=== PATIENT | male | born 1955 | race Caucasian/White ===

== ENCOUNTER 2024-03-01 06:45 | Day surgery (SDC) | payer MEDICARE, OTHER ==
[~2024-03-01] VITALS: Ht 170.2 cm; Wt 113.5 kg
[~2024-03-01 06:45] MED LIST: ALBU18HF12 IH; ASPI-1444 PO; ATOR20TA PO; DORZ10DR6 OU; EMPA10TA3 PO; FAMO20 PO; GABA-1216 PO; IBUP-1492 PO; LIDOCAINE/PF 2% 5 ML VIAL ONE; LISI-893 PO; MELO-107 PO; METF-1211 PO; PROPOFOL 1% 20 ML VIAL IVP ONE; SODIUM CHLORIDE 0.9% 1,000 ML ONE; TERB250T90 PO; XALA2.5OS OU
[2024-03-01 08:00] LABS: GLUCOMETER DEV NAME(LOC) SDS.; GLUCOSE,POINT OF CARE 115 MG/DL (70-110)
[2024-03-01] MEDS: SODIUM CHLORIDE 0.9% 1,000 ML IV ONE (08:01)
[2024-03-01] MEDS ORDERED: OXYGEN THERAPY IH SCH (08:30)
== END 2024-03-01 10:40 | disposition home or self-care (01) ==
LOC: SURGERY 06:45
PROVIDERS: ATTEND Specialist
DX: K21.9 Gastro-esophageal reflux disease without esophagitis (principal); K44.9 Diaphragmatic hernia without obstruction or gangrene; K29.70 Gastritis, unspecified, without bleeding; K31.A0 Gastric intestinal metaplasia, unspecified; R05.9 Cough, unspecified; E11.9 Type 2 diabetes mellitus without complications; M25.561 Pain in right knee; E78.00 Pure hypercholesterolemia, unspecified; Z79.899 Other long term (current) drug therapy; Z79.84 Long term (current) use of oral hypoglycemic drugs; Z86.16 Personal history of COVID-19
CPT/HCPCS: 82962; 88305; 88312; 88313; J2704; J3490; J7030